=== PATIENT | female | born 1990 | race Caucasian/White ===

== ENCOUNTER → 2023-12-23 14:26 | Outpatient (REF) | payer BC, SELFPAY | LOC: CLAB 14:26 | PROVIDERS: ATTENDING PHYSICIAN Otolaryngology | DX: J02.0 Streptococcal pharyngitis (principal); J02.9 Acute pharyngitis, unspecified | CPT/HCPCS: 87070; 87205 ==

== ENCOUNTER → 2024-06-16 20:01 | Outpatient (REF) | payer BC, SELFPAY | LOC: MRI 3T 20:01 | PROVIDERS: ATTENDING PHYSICIAN Emergency Medicine | DX: R41.3 Other amnesia (principal); Z87.828 Personal history of other (healed) physical injury and trauma | CPT/HCPCS: 70553; A9575 ==

== ENCOUNTER → 2024-07-27 12:27 | Outpatient (REF) | payer BC, SELFPAY | LOC: PAVMRI 12:27 | PROVIDERS: ATTENDING PHYSICIAN Physician Assistant Medical; FAMILY PHYSICIAN Emergency Medicine | DX: G93.5 Compression of brain (principal) | CPT/HCPCS: 72156; 72158; A9575 ==

== ENCOUNTER → 2024-07-31 18:15 | Outpatient (REF) | payer BC, SELFPAY | LOC: MRI 18:15 | PROVIDERS: ATTENDING PHYSICIAN Physician Assistant Medical; FAMILY PHYSICIAN Emergency Medicine | DX: G93.5 Compression of brain (principal) | CPT/HCPCS: 72157; A9575 ==

== ENCOUNTER → 2025-01-05 13:49 | Outpatient (REF) | payer BC, SELFPAY | LOC: HWRAD 13:49 | PROVIDERS: ATTENDING PHYSICIAN Obstetrics & Gynecology; FAMILY PHYSICIAN Emergency Medicine | DX: Z32.01 Encounter for pregnancy test, result positive (principal) | CPT/HCPCS: 76801; 76817 ==

== ENCOUNTER → 2025-01-22 10:39 | Outpatient (REF) | payer BC, SELFPAY | LOC: PNTC 10:39 | PROVIDERS: ATTENDING PHYSICIAN Obstetrics & Gynecology | DX: O36.80X0 Pregnancy with inconclusive fetal viability, not applicable or unspecified (principal); O41.8X99 Other specified disorders of amniotic fluid and membranes, unspecified trimester, other fetus; Z34.90 Encounter for supervision of normal pregnancy, unspecified, unspecified trimester | CPT/HCPCS: 76801 ==

== ENCOUNTER → 2025-02-19 16:08 | Outpatient (REF) | payer BC, SELFPAY | LOC: PNTC 16:08 | PROVIDERS: ATTENDING PHYSICIAN Obstetrics & Gynecology | DX: Z36.0 Encounter for antenatal screening for chromosomal anomalies (principal); Z36.82 Encounter for antenatal screening for nuchal translucency | CPT/HCPCS: 76801; 76813 ==

== ENCOUNTER 2025-08-10 08:37 | Observation (INO) | payer BC, SELFPAY ==
[2025-08-10 08:58] VITALS: BP 101/54; BMI 25.0
[2025-08-10 09:52] LABS: Hematocrit 38.5 % (37.0-47.0); Hemoglobin 13.1 g/dL (12.0-16.0); Mean Corp Hgb Conc. 34.0 g/dL (33.0-37.0); Mean Corpuscular Volume 85.6 fL (81.0-99.0); Nucleated Red Blood Cells % 0 %; Platelet Count 138 10^3/uL (130-400); Red Cell Dist. Width 13.4 % (11.5-14.5)
[2025-08-10] MEDS: BRETHINE 250 MCG SC (11:38)
== END 2025-08-10 13:25 | disposition home or self-care (01) ==
LOC: LDRP 08:37
PROVIDERS: ADMITTING PHYSICIAN Obstetrics & Gynecology; FAMILY PHYSICIAN Emergency Medicine
DX: O32.1XX0 Maternal care for breech presentation, not applicable or unspecified (principal); Z3A.37 37 weeks gestation of pregnancy; O34.219 Maternal care for unspecified type scar from previous cesarean delivery; O09.523 Supervision of elderly multigravida, third trimester; Z87.442 Personal history of urinary calculi
CPT/HCPCS: 59412; 59025; 85025; 86850; 86900; 86901; G0378

== ENCOUNTER 2025-08-17 22:56 | Inpatient (IN) | payer BC, SELFPAY ==
[2025-08-17 23:22] VITALS: BP 115/76; BMI 25.8
[2025-08-17 23:22] LABS: Hematocrit 38.3 % (37.0-47.0); Hemoglobin 13.2 g/dL (12.0-16.0); Mean Corp Hgb Conc. 34.5 g/dL (33.0-37.0); Mean Corpuscular Volume 84.0 fL (81.0-99.0); Nucleated Red Blood Cells % 0 %; Platelet Count 167 10^3/uL (130-400); Red Cell Dist. Width 13.2 % (11.5-14.5)
[2025-08-17] MEDS: SUBLIMAZE 100 MCG EPIDURAL (23:42)
[2025-08-17] MEDS: FENTANYL/BUPIVACAINE 100 EPIDURAL (23:43)
[2025-08-18] MEDS: TRANEXAMIC ACID 100 IV (06:51)
[2025-08-18] MEDS: PRENATAL PLUS 1 TABLET PO (08:07)
[2025-08-18] MEDS: COLACE 100 MG PO ×2 (08:07→19:53)
[2025-08-18] MEDS: MOTRIN 600 MG PO ×3 (08:07→22:20)
[2025-08-18] MEDS: METHERGINE INJECTION 0.2 MG IM (08:37)
[2025-08-18] MEDS: PITOCIN 30 UNITS/NSS 500 ML IV (09:15)
[2025-08-18] MEDS: ANCEF 10 IV (10:35)
[2025-08-18] MEDS: TYLENOL 650 MG PO ×2 (18:10→22:20)
[2025-08-19] MEDS: TYLENOL 650 MG PO (04:04)
[2025-08-19 04:43] LABS: Hematocrit 32.0 % (37.0-47.0); Hemoglobin 10.8 g/dL (12.0-16.0)
[2025-08-19] MEDS: MOTRIN 600 MG PO (06:41)
[2025-08-19] MEDS: PRENATAL PLUS 1 TABLET PO (08:06)
[2025-08-19] MEDS: COLACE 100 MG PO (08:06)
[2025-08-21 15:38] LABS: Syphilis/T. pallidum Ab Reflex Negative (Negative)
== END 2025-08-19 15:37 | disposition home or self-care (01) | DRG 768 ==
LOC: LDRP 22:56
PROVIDERS: Obstetrics & Gynecology; ADMITTING PHYSICIAN Obstetrics & Gynecology
PROC: 4A1HXCZ Monitoring of Products of Conception, Cardiac Rate, External Approach (ICD-10-PCS; 2025-08-17)
PROC: 10E0XZZ Delivery of Products of Conception, External Approach (ICD-10-PCS; 2025-08-18)
PROC: 0W3R7ZZ Control Bleeding in Genitourinary Tract, Via Natural or Artificial Opening (ICD-10-PCS; 2025-08-18)
PROC: 0UQMXZZ Repair Vulva, External Approach (ICD-10-PCS; 2025-08-18)
PROC: 0KQM0ZZ Repair Perineum Muscle, Open Approach (ICD-10-PCS; 2025-08-18)
DX: O69.81X0 Labor and delivery complicated by cord around neck, without compression, not applicable or unspecified (principal); Z37.0 Single live birth; O72.1 Other immediate postpartum hemorrhage; O70.1 Second degree perineal laceration during delivery; Z3A.38 38 weeks gestation of pregnancy
CPT/HCPCS: 85014; 85018; 85025; 86780; 86850; 86900; 86901